=== PATIENT | female | born 1985 | race Caucasian/White ===

== ENCOUNTER 2024-01-22 02:03 | Inpatient (IN) | payer OTHER ==
[~2024-01-22 02:03] MED LIST: Bupivacaine 0.25% 10 ML SDV ONE
[2024-01-22] MEDS ORDERED: Lidocaine 1% 50 ML MDV INJECT PRN (13:33)
[2024-01-22] MEDS ORDERED: Nalbuphine 10 MG/ML Syringe IVPUSH PRN (13:33)
[2024-01-22] MEDS ORDERED: Oxytocin/Lactated Ringers 30 UNIT/500 ML BAG IV SCH (13:45)
[2024-01-22 13:54] LABS: BASOPHILS PERCENT AUTO 0.5 % (0.0-1.0); EOSINOPHILS PERCENT AUTO 0.2 % (0.0-6.0); HEMATOCRIT 38.2 % (37.0-47.0); HEMOGLOBIN 12.3 gm/dl (12.0-16.0); IMMATURE GRAN ABSOLUTE AUTO 0.04 K/mm3 (0.00-0.05); IMMATURE GRAN PERCENT AUTO 0.6 % (0.0-0.4); LYMPHOCYTES ABSOLUTE AUTO 1.2 K/mm3 (1.0-4.8); LYMPHOCYTES PERCENT AUTO 17.5 % (24.0-44.0); MEAN CORPUSCULAR HGB CONC 32.2 g/dl (32.0-36.0); MEAN CORPUSCULAR VOLUME 86.8 fl (83.0-99.0); MEAN PLATELET VOLUME 11.1 fl (9.4-12.3); MONOCYTES ABSOLUTE AUTO 0.4 K/mm3 (0.0-0.8); MONOCYTES PERCENT AUTO 6.3 % (0.0-8.0); NEUTROPHILS PERCENT AUTO 74.9 % (41.0-71.0); PLATELET COUNT,PLT 195 K/mm3 (150-400); WHITE BLOOD CELL COUNT,WBC 6.63 K/mm3 (3.9-11.3)
[2024-01-22] MEDS: Lactated Ringers 1,000 ML IV SCH (14:50)
[2024-01-22] MEDS: Oxytocin/Lactated Ringers 30 UNIT/500 ML BAG IV SCH (14:50)
[2024-01-22] MEDS: Ampicillin 2 GM in Sodium Chloride 0.9% 100 ML IV ONE (14:53)
[2024-01-22] MEDS: Ampicillin 1 GM in Sodium Chloride 0.9% 100 ML IV SCH (18:59)
[2024-01-22] MEDS ORDERED: ePHEDrine 50 MG/ML SDV IVPUSH PRN (19:27)
[2024-01-22] MEDS ORDERED: diphenhydrAMINE 50 MG/ML SDV IVPUSH PRN (19:27)
[2024-01-22] MEDS: fentaNYL 100 MCG/2 ML SDV EPIDUR PRN (22:25)
[2024-01-22] MEDS: Bupivacaine/fentaNYL/NS 100 ML Bag EPIDUR PRN (22:31)
[2024-01-23] MEDS ORDERED: Acetaminophen 325 MG Tab PO PRN (02:30)
[2024-01-23] MEDS: Ibuprofen 600 MG Tab PO SCH ×2 (04:07→08:44)
[2024-01-23] MEDS: Witch Hazel Medicated Pads 40/Jar TOP PRN (04:07)
[2024-01-23] MEDS: Benzocaine/Menthol 20%-0.5% Spray 78 GM Cannister TOP PRN (04:08)
[2024-01-23] MEDS: Docusate Sodium 100 MG Cap PO PRN (08:44)
[2024-01-24 19:01] VITALS: BP 121/80; PULSE 71
== END 2024-01-24 14:42 | disposition home or self-care (01) | DRG 807 ==
LOC: JD.OB 02:03 → OBSVTOIN 01-23 02:03 → JD.OB 01-23 02:04
PROVIDERS: ADMIT Obstetrics & Gynecology; ATTEND Obstetrics & Gynecology
PROC: 10E0XZZ Delivery of Products of Conception, External Approach (ICD-10-PCS; principal; 2024-01-23)
PROC: 10907ZC Drainage of Amniotic Fluid, Therapeutic from Products of Conception, Via Natural or Artificial Opening (ICD-10-PCS; 2024-01-23)
PROC: 3E033VJ Introduction of Other Hormone into Peripheral Vein, Percutaneous Approach (ICD-10-PCS; 2024-01-23)
PROC: 3E0R3BZ Introduction of Anesthetic Agent into Spinal Canal, Percutaneous Approach (ICD-10-PCS; 2024-01-23)
PROC: 00HU33Z Insertion of Infusion Device into Spinal Canal, Percutaneous Approach (ICD-10-PCS; 2024-01-23)
DX: O36.8130 Decreased fetal movements, third trimester, not applicable or unspecified (principal); Z37.0 Single live birth; O99.824 Streptococcus B carrier state complicating childbirth; Z3A.37 37 weeks gestation of pregnancy; Z91.018 Allergy to other foods
CPT/HCPCS: 36415; 51702; 59025; 59409; 85025; 86592; A9270-GY; J0290; J0665; J3010; J3490; J7120; J7999